=== PATIENT | male | born 1970 | race Caucasian/White ===

== ENCOUNTER 2017-09-23 07:11 | Day surgery (SDC) | payer OTHER ==
[~2017-09-23] VITALS: Ht 175.3 cm; Wt 123.3 kg
[~2017-09-23 07:11] MED LIST: ACCUPRIL40 MG PO; ADULT ASPIRIN R81 MG PO; CRESTOR40 MG PO; INSULIN PUMP MC
[2017-09-23 07:42] VITALS: BP 143/78
[2017-09-23 08:23] LABS: ANION GAP 6 MEQ/L (2-14); CHLORIDE 101 MEQ/L (99-109); GFR ESTIMATE (CALCULATED) > 59 mL/min/ (58.99-99999); GLUCOSE 326 mg/dL (70-99); POTASSIUM 4.3 MEQ/L (3.7-5.4); SAMPLE HEMOLYSIS CHECK 0; SAMPLE ICTERIC CHECK 0; SAMPLE LIPEMIA CHECK 0; SODIUM 137 MEQ/L (136-147); UREA NITROGEN (BUN) 19 mg/dL (9-23)
[2017-09-23 10:12] LABS: POINT-OF-CARE METER ID UU13113655; POINT-OF-CARE USER ID ENVKLS06
[2017-09-23 10:37] LABS: POINT-OF-CARE METER ID UU13113655; POINT-OF-CARE USER ID ENVKLS06
[2017-09-23 11:48] LABS: POINT-OF-CARE METER ID UU13113675
[2017-09-23] MEDS ORDERED: NORCO 5/3251 TABLET PO (11:50)
[2017-09-23 12:30] LABS: POINT-OF-CARE METER ID UU13113675
[2017-09-23 12:48] VITALS: BP 141/74
[2017-09-23 13:34] VITALS: BP 141/79
== END 2017-09-23 13:45 | disposition home or self-care (01) ==
LOC: SDC 07:11
PROVIDERS: Surgery
DX: K43.2 Incisional hernia without obstruction or gangrene (principal); T85.9XXA Unspecified complication of internal prosthetic device, implant and graft, initial encounter; E11.9 Type 2 diabetes mellitus without complications; E78.4 Other hyperlipidemia; I10 Essential (primary) hypertension; H40.9 Unspecified glaucoma; Z79.4 Long term (current) use of insulin; Z96.41 Presence of insulin pump (external) (internal); Z79.82 Long term (current) use of aspirin
CPT/HCPCS: 80048; 82948; 88300; 93005; C1781; J0131; J0330; J0690; J1100; J1885; J2250; J2405; J2710; J2765; J3010; S0020